=== PATIENT | male | born 1995 | race African-American/Black ===

== ENCOUNTER 2020-05-27 12:12 | Emergency (ER) | payer SELFPAY ==
[~2020-05-27] VITALS: Ht 175.3 cm; Wt 96.8 kg
[2020-05-27 12:25] VITALS: Ht 175.3 cm; Wt 96.8 kg
[2020-05-27] MEDS ORDERED: CLEOCIN HCL300 MG PO (12:39)
[2020-05-27] MEDS ORDERED: VOLTAREN75 MG PO (12:39)
[2020-05-27 13:08] VITALS: BP 125/82
== END 2020-05-27 13:08 | disposition home or self-care (01) ==
LOC: D.ER 12:12
DX: K04.7 Periapical abscess without sinus (principal); K08.89 Other specified disorders of teeth and supporting structures; Z72.0 Tobacco use